=== PATIENT | female | born 1965 | race Caucasian/White ===

== ENCOUNTER 2017-05-01 19:00 | Emergency (ER) | payer MEDICAID ==
[2017-05-01 20:37] LABS: microscopic required? NO
[2017-05-01 20:47] LABS: urine erythrocyte NEGATIVE (NEGATIVE)
[2017-05-01 20:48] LABS: BASOPHIL % 0.5 % (0-2); PLATELET COUNT 206 x10^3mcL (130-400); RED CELL DISTRIBUTION WIDTH 13.3 % (11.5-14.5)
[2017-05-01 20:53] LABS: CALCIUM 9.1 mg/dL (8.5-10.1); CARBON DIOXIDE 30.7 mmol/L (21-32); CHLORIDE SERUM 102 mmol/L (98-107); CREATININE SERUM 0.9 mg/dL (0.6-1.0); GFR1 > 60 mL/min; GLUCOSE SERUM 120 mg/dL (74-106); POTASSIUM SERUM 4.2 mmol/L (3.5-5.1); SODIUM SERUM 141 mmol/L (136-145)
[2017-05-01 20:58] LABS: ALBUMIN 4.3 g/dL (3.4-5.0); ALKALINE PHOSPHATASE 100 U/L (46-116); ALT/SGPT 42 U/L (14-59); AST/SGOT 35 U/L (15-37); BILIRUBIN TOTAL 0.34 mg/dL (0.20-1.00); TOTAL PROTEIN, SERUM 8.1 g/dL (6.4-8.2)
[2017-05-01 21:48] VITALS: BP 125/71
== END 2017-05-01 21:48 | disposition home or self-care (01) ==
LOC: ED 19:00
PROVIDERS: Emergency Medicine
DX: R55 Syncope and collapse (principal); Z90.710 Acquired absence of both cervix and uterus
CPT/HCPCS: 36415

== ENCOUNTER 2017-07-11 08:47 | Emergency (ER) | payer MEDICAID ==
[~2017-07-11] VITALS: Ht 165.1 cm; Wt 75.3 kg
[2017-07-11 08:50] VITALS: BP 140/70
== END 2017-07-11 09:40 | disposition home or self-care (01) ==
LOC: ED 08:47
DX: L03.031 Cellulitis of right toe (principal)
CPT/HCPCS: J2001

== ENCOUNTER 2017-08-31 12:18 | Emergency (ER) | payer MEDICAID ==
[2017-08-31 13:44] LABS: BASOPHIL % 0.8 % (0-2); PLATELET COUNT 184 x10^3mcL (130-400); RED CELL DISTRIBUTION WIDTH 13.3 % (11.5-14.5)
[2017-08-31 13:49] LABS: CALCIUM 9.3 mg/dL (8.5-10.1); CARBON DIOXIDE 27.1 mmol/L (21-32); CHLORIDE SERUM 103 mmol/L (98-107); CREATININE SERUM 0.7 mg/dL (0.6-1.0); GFR1 > 60 mL/min; GLUCOSE SERUM 94 mg/dL (74-106); POTASSIUM SERUM 4.3 mmol/L (3.5-5.1); SODIUM SERUM 142 mmol/L (136-145)
[2017-08-31 13:56] LABS: ALBUMIN 4.5 g/dL (3.4-5.0); ALKALINE PHOSPHATASE 93 U/L (46-116); ALT/SGPT 35 U/L (14-59); AST/SGOT 20 U/L (15-37); BILIRUBIN TOTAL 0.3 mg/dL (0.20-1.00); TOTAL PROTEIN, SERUM 8.4 g/dL (6.4-8.2)
[2017-08-31 14:49] VITALS: BP 137/89
== END 2017-08-31 14:49 | disposition home or self-care (01) ==
LOC: ED 12:18
PROVIDERS: Emergency Medicine
DX: L29.9 Pruritus, unspecified (principal); L23.9 Allergic contact dermatitis, unspecified cause
CPT/HCPCS: 36415

== ENCOUNTER 2018-07-26 19:30 | Emergency (ER) | payer MEDICAID ==
[~2018-07-26] VITALS: Ht 172.7 cm; Wt 75.7 kg
[2018-07-26 19:33] VITALS: Ht 172.7 cm; Wt 75.7 kg
[2018-07-26 19:59] LABS: microscopic required? NO
[2018-07-26 20:04] LABS: UA SPECIFIC GRAVITY <=1.005 (1.005-1.035); urine erythrocyte NEGATIVE (NEGATIVE)
[2018-07-26 20:05] VITALS: BP 140/83
== END 2018-07-26 20:05 | disposition home or self-care (01) ==
LOC: ED 19:30
PROVIDERS: Emergency Medicine
DX: N39.0 Urinary tract infection, site not specified (principal); T63.481A Toxic effect of venom of other arthropod, accidental (unintentional), initial encounter; R03.0 Elevated blood-pressure reading, without diagnosis of hypertension; Z90.710 Acquired absence of both cervix and uterus; Y92.89 Other specified places as the place of occurrence of the external cause

== ENCOUNTER 2018-08-02 08:48 | Emergency (ER) | payer MEDICAID ==
[~2018-08-02] VITALS: Ht 167.6 cm; Wt 75.0 kg
[2018-08-02 09:03] VITALS: Ht 167.6 cm; Wt 75.0 kg
[2018-08-02 10:02] LABS: microscopic required? YES; urine erythrocyte TRACE (NEGATIVE)
[2018-08-02 14:49] VITALS: BP 124/77
== END 2018-08-02 14:49 | disposition home or self-care (01) ==
LOC: ED 08:48
PROVIDERS: Emergency Medicine
DX: R10.2 Pelvic and perineal pain (principal); R30.0 Dysuria; Z90.710 Acquired absence of both cervix and uterus
CPT/HCPCS: 87491; 87591; J2270

== ENCOUNTER 2018-08-12 15:50 | Emergency (ER) | payer MEDICAID ==
[~2018-08-12] VITALS: Ht 162.6 cm; Wt 74.4 kg
[2018-08-12 15:58] VITALS: Ht 162.6 cm; Wt 74.4 kg
[2018-08-12 18:08] VITALS: BP 130/74
== END 2018-08-12 17:45 | disposition home or self-care (01) ==
LOC: ED 15:50
DX: J06.9 Acute upper respiratory infection, unspecified (principal); Z90.710 Acquired absence of both cervix and uterus

== ENCOUNTER 2019-01-26 19:08 | Emergency (ER) | payer MEDICAID ==
[~2019-01-26] VITALS: Ht 167.6 cm; Wt 74.1 kg
[2019-01-26 20:03] VITALS: Ht 167.6 cm; Wt 74.1 kg
[2019-01-26 21:10] VITALS: BP 124/85
== END 2019-01-26 21:10 | disposition home or self-care (01) ==
LOC: ED 19:08
DX: J36 Peritonsillar abscess (principal); I10 Essential (primary) hypertension; E78.00 Pure hypercholesterolemia, unspecified; Z90.710 Acquired absence of both cervix and uterus

== ENCOUNTER 2020-08-20 17:38 | Inpatient (IN) | payer MEDICAID, SELFPAY ==
[~2020-08-20] VITALS: Ht 162.6 cm; Wt 72.6 kg
[2020-08-20 17:40] VITALS: Ht 162.6 cm; Wt 72.6 kg
[2020-08-20 20:02] LABS: BASOPHIL % 0.2 % (0.2-1.3); PLATELET COUNT 243 x10^3mcL (179-408); RED CELL DISTRIBUTION WIDTH 13.4 % (12.3-17.7)
[2020-08-20] MEDS ORDERED: PROMETHAZI6.25 MG/5 (20:21)
[2020-08-20] MEDS ORDERED: AZITHROMYCIN1 GM PO (20:21)
[2020-08-20 20:26] LABS: CALCIUM 8.8 mg/dL (8.5-10.1); CARBON DIOXIDE 22.2 mmol/L (21-32); CHLORIDE SERUM 98 mmol/L (98-107); CREATININE SERUM 0.9 mg/dL (0.6-1.0); GFR1 > 60 mL/min; GLUCOSE SERUM 169 mg/dL (74-106); POTASSIUM SERUM 3.8 mmol/L (3.5-5.1); SODIUM SERUM 134 mmol/L (136-145)
[2020-08-20 20:31] LABS: ALBUMIN 3.7 g/dL (3.4-5.0); ALKALINE PHOSPHATASE 115 U/L (46-116); ALT/SGPT 38 U/L (14-59); AST/SGOT 37 U/L (15-37); BILIRUBIN TOTAL 0.2 mg/dL (0.20-1.00); C REACTIVE PROTEIN 5.2 mg/dL (<=0.9); LACTIC DEHYDROGENASE (LDH) 273 U/L (100-190); TOTAL PROTEIN, SERUM 8.1 g/dL (6.4-8.2)
[2020-08-20 22:50] LABS: CHOLESTEROL/HDL RATIO 4.3
[2020-08-21 00:40] LABS: microscopic required? YES; urine erythrocyte NEGATIVE (NEGATIVE)
[2020-08-21 01:41] VITALS: BP 123/66
[2020-08-21 08:34] LABS: PLATELET COUNT 246 x10^3mcL (179-408); RED CELL DISTRIBUTION WIDTH 13.5 % (12.3-17.7)
[2020-08-21 08:37] LABS: CALCIUM 8.8 mg/dL (8.5-10.1); CARBON DIOXIDE 25.2 mmol/L (21-32); CHLORIDE SERUM 100 mmol/L (98-107); CREATININE SERUM 0.7 mg/dL (0.6-1.0); GFR1 > 60 mL/min; GLUCOSE SERUM 96 mg/dL (74-106); MAGNESIUM 2.7 mg/dL (1.8-2.4); PHOSPHOROUS 3.9 mg/dL (2.5-4.9); POTASSIUM SERUM 4.2 mmol/L (3.5-5.1); SODIUM SERUM 136 mmol/L (136-145)
[2020-08-21 09:24] VITALS: BP 111/65
[2020-08-21 09:37] LABS: BASOPHIL % 0 % (0.2-1.3)
[2020-08-21 13:34] VITALS: BP 99/46
[2020-08-21 18:15] VITALS: BP 105/57
[2020-08-21 18:19] VITALS: BP 96/52
[2020-08-21 21:32] VITALS: BP 95/50
[2020-08-22 05:58] VITALS: BP 92/55
[2020-08-22 08:52] LABS: BASOPHIL % 0.2 % (0.2-1.3); PLATELET COUNT 296 x10^3mcL (179-408); RED CELL DISTRIBUTION WIDTH 13.5 % (12.3-17.7)
[2020-08-22 09:00] LABS: ALBUMIN 3.4 g/dL (3.4-5.0); ALKALINE PHOSPHATASE 119 U/L (46-116); ALT/SGPT 99 U/L (14-59); AST/SGOT 67 U/L (15-37); BILIRUBIN DIRECT 0.08 mg/dL (0.0-0.2); BILIRUBIN TOTAL 0.3 mg/dL (0.20-1.00); CARBON DIOXIDE 24.9 mmol/L (21-32); CHLORIDE SERUM 101 mmol/L (98-107); CREATININE SERUM 0.8 mg/dL (0.6-1.0); GFR1 > 60 mL/min; GLUCOSE SERUM 85 mg/dL (74-106); MAGNESIUM 2.6 mg/dL (1.8-2.4); PHOSPHOROUS 3.9 mg/dL (2.5-4.9); SODIUM SERUM 136 mmol/L (136-145); TOTAL PROTEIN, SERUM 7.4 g/dL (6.4-8.2)
[2020-08-22 10:06] VITALS: BP 105/60
[2020-08-22 13:37] VITALS: BP 109/62
[2020-08-22 19:02] VITALS: BP 104/58
[2020-08-22 22:45] VITALS: BP 116/63
[2020-08-23 05:22] VITALS: BP 96/53
[2020-08-23 08:57] VITALS: BP 115/64
[2020-08-23 09:43] LABS: BILIRUBIN DIRECT 0.06 mg/dL (0.0-0.2); BILIRUBIN TOTAL 0.21 mg/dL (0.20-1.00)
[2020-08-23] MEDS ORDERED: ZINC SULFATE220 MG PO (10:41)
[2020-08-23] MEDS ORDERED: VENTOLIN H0.09 MG/A1 INH (10:41)
[2020-08-23] MEDS ORDERED: DECADRON6 MG PO (10:42)
[2020-08-23] MEDS ORDERED: MUCINEX600 MG PO (10:42)
[2020-08-23] MEDS ORDERED: VITC PO (10:43)
[2020-08-23] MEDS ORDERED: D-10001 TAB PO (10:43)
[2020-08-23 12:26] VITALS: BP 115/64
[2020-08-23 12:42] VITALS: BP 100/56
== END 2020-08-23 13:47 | disposition home or self-care (01) | DRG 137 ==
LOC: ED 17:38 → DU 21:47 → MU 21:47 → DU 08-21 01:23 → MU 08-21 07:40
PROVIDERS: Emergency Medicine; Internal Medicine; ADMIT Family Medicine; ATTEND Family Medicine
PROC: XW033E5 Introduction of Remdesivir Anti-infective into Peripheral Vein, Percutaneous Approach, New Technology Group 5 (ICD-10-PCS; principal; 2020-08-20)
DX: U07.1 COVID-19 (principal); J96.01 Acute respiratory failure with hypoxia; J12.82 Pneumonia due to coronavirus disease 2019; E87.1 Hypo-osmolality and hyponatremia; I10 Essential (primary) hypertension; Z90.710 Acquired absence of both cervix and uterus
CPT/HCPCS: 36600; 83880; 85378; G0378; J1100; J1644; J7030; U0003